=== PATIENT | male | born 1970 | race Two or more races ===

== ENCOUNTER 2017-02-13 21:47 | Emergency (ER) | payer OTHER ==
--- NOTE | 2017-02-13 21:52 | EDPHY ---
H & P HPI/ROS: HPI CHIEF COMPLAINT: Anxiety, lightheadedness, chills HISTORY OF PRESENT ILLNESS: This patient very pleasant 46-year-old male, otherwise healthy denies taking any daily medications at times he does take a sleep aid to help sleep due to anxiety. He tells me that approximately a year ago he had an anxiety attack and ended up in the emergency room. Additionally had cardiology evaluation with a negative nuclear stress test and echocardiogram and EKG. He presents emergency room this evening feeling anxious. He states that he had a normal day today. He went to work felt fine. He came home a dinner. He started feeling lightheaded. He describes this as not room spinning. He states he then felt chills. [place] anxious. Decided come the emergency room. Denies any chest pain, jaw pain, back pain, headache, neck pain, dizziness, nausea or vomiting. Denies shortness of breath. Main complaint is feeling slightly anxious and lightheadedness. No family history of premature cardiac disease. Since arriving to the emergency room he does tell me he feels better. He is lightheadedness has subsided. Additionally he denies focal weakness or numbness or tingling. 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 Family History: Noncontributory. ROS REVIEW OF SYSTEMS: A comprehensive 10 point review of systems is otherwise negative aside from elements mentioned in the history of present illness. Exam Constitutional appears slightly anxious triage nursing summary reviewed, vital signs reviewed, awake/alert. His vital signs are noted. Hypertensive. Eyes normal conjunctivae and sclera, EOMI, PERRLA. HENT normal inspection, atraumatic, moist mucus membranes, no epistaxis, neck supple/ no meningismus, no raccoon eyes. Respiratory clear to auscultation bilaterally, normal breath sounds, no respiratory distress, no wheezing. Cardiovascular rate normal, regular rhythm, no murmur, no edema, distal pulses normal. Gastrointestinal soft, non-tender, no rebound, no guarding, normal bowel sounds, no distension, no pulsatile mass. Genitourinary no CVA tenderness. Musculoskeletal no midline vertebral tenderness, full range of motion, no calf swelling, no tenderness of extremities, no meningismus, good pulses, neurovascularly intact. Skin pink, warm, & dry, no rash, skin atraumatic. Neurologic awake, alert and oriented x 3, AAOx3, moves all 4 extremities equally, motor intact, sensory intact, CN II-XII intact, normal cerebellar, normal vision, normal speech. Psychiatric anxious, normal mood/affect. Heme/Lymph/Immune no lymphadenopathy. Differential Diagnosis: Includes but is not limited to in a particular order, acute anxiety, panic attack, electrolyte disturbance, thyroid disease, doubt acute coronary syndrome, doubt CVA Medical Decision Making: Plan for patient full cardiac cath tech, obtain EKG, IV establishment with blood draw. 0.5 mg IV Ativan to see if this improves his symptoms in relaxes him. He appears anxious. Check troponin. Re-evaluation: EKG interpretation by me on record in [facility] system. Impression and time of EKG 2200, this is sinus rhythm rate of 67 no acute ischemic changes appreciated this EKG specifically no ST elevation ST depression T-wave abnormalities or prolonged intervals. Unremarkable nonischemic EKG. And very similar to previous EKG dated December 25 2015. ED x-ray chest one view: Negative for acute cardiopulmonary disease. 2246: Re-evaluation at this time patient is resting comfortably. No chest pain or shortness of breath. Blood pressure greatly improved with anxiety medicine 140s over 90s. He is feeling relax and feels much better. He denies any complaints at this time. Feels much better after 0.5 mg IV Ativan. Blood pressure improved. EKG nonischemic. Troponin negative. Chest x-ray negative. Electrolytes are appropriate. TSH is still pending. I will allow him to go home with a limited supply of Ativan. Should follow up with his primary care doctor. Only did take Ativan he feels very anxious. Return precautions have been given he understands return emergency room if develops chest pain shortness of breath severe headache numbness or tingling focal weakness or any questions or concerns. He is agreeable this plan. He is relieved his workup is negative. Feels much better after anxiety medicine. Source: Patient - Medical/Surgical History Hx Asthma: No Hx Chronic Respiratory Disease: No Hx Diabetes: No Hx Cardiac Disease: No Hx Renal Disease: No Hx Cirrhosis: No Hx Alcoholism: No Hx HIV/AIDS: No Hx Splenectomy or Spleen Trauma: No - Social History Smoking Status: Never smoked Constitutional: Initial Vital Signs Heart Rate 69 02/13/17 21:53 Respiratory Rate 21 H 02/13/17 21:53 Blood Pressure 186/99 H 02/13/17 21:53 O2 Sat (%) 98 02/13/17 21:53 O2 Delivery Mode Room Air Allergies/Adverse Reactions: No Known Allergies Allergy (Verified 02/13/17 22:19) Home Medications: Medication Instructions Recorded Melatonin 12/25/15 hydrOXYzine HCL [Hydroxyzine HCl] 50 mg PO BID PRN #15 tablet 12/25/15 LORazepam [Ativan] 1 mg PO DAILY #5 tablet 02/13/17 Medical Decision Making - Diagnostics Imaging Results: Imaging Impressions Chest X-Ray 02/13/17 22:00 Impression: The chest is negative for acute abnormality. - Data Points Laboratory Results: Laboratory Results 02/13/17 22:10 02/13/17 22:10 02/13/17 02/13/17 22:10 22:10 WBC 9.90 10^3/uL H 10^3/uL (3.80-9.50) RBC 5.19 10^6/uL 10^6/uL (4.40-6.38) Hgb 16.5 g/dL g/dL (13.7-17.5) Hct 47.0 % % (40.0-51.0) MCV 90.6 fL fL (81.5-99.8) MCH 31.8 pg pg (27.9-34.1) MCHC 35.1 g/dL g/dL (32.4-36.7) RDW 12.9 % % (11.5-15.2) Plt Count 284 10^3/uL 10^3/uL (150-400) MPV 11.0 fL fL (8.7-11.7) Neut % (Auto) 62.0 % % (39.3-74.2) Lymph % (Auto) 26.3 % % (15.0-45.0) [place] % (Auto) 6.4 % % (4.5-13.0) Eos % (Auto) 4.2 % % (0.6-7.6) Baso % (Auto) 1.0 % % (0.3-1.7) Nucleat RBC Rel Count 0.0 % % (0.0-0.2) Absolute Neuts (auto) 6.14 10^3/uL 10^3/uL (1.70-6.50) Absolute Lymphs (auto) 2.60 10^3/uL 10^3/uL (1.00-3.00) Absolute Monos (auto) 0.63 10^3/uL 10^3/uL (0.30-0.80) Absolute Eos (auto) 0.42 10^3/uL H 10^3/uL (0.03-0.40) Absolute Basos (auto) 0.10 10^3/uL 10^3/uL (0.02-0.10) Absolute Nucleated RBC 0.00 10^3/uL 10^3/uL (0-0.01) Immature Gran % 0.1 % % (0.0-1.1) Immature Gran # 0.01 10^3/uL 10^3/uL (0.00-0.10) Sodium 141 mEq/L mEq/L (134-144) Potassium 3.8 mEq/L mEq/L (3.5-5.2) Chloride 101 mEq/L mEq/L (97-110) Carbon Dioxide 25 mEq/l mEq/l (22-31) Anion Gap 15 mEq/L mEq/L (8-16) BUN 13 mg/dL mg/dL (7-23) Creatinine 0.9 mg/dL mg/dL (0.7-1.3) Estimated GFR > 60 Glucose 127 mg/dL H mg/dL (70-100) Calcium 9.8 mg/dL mg/dL (8.5-10.4) Magnesium 2.1 mg/dL mg/dL (1.6-2.3) Total Bilirubin 0.7 mg/dL mg/dL (0.1-1.4) Conjugated Bilirubin 0.3 mg/dL mg/dL (0.0-0.5) Unconjugated Bilirubin 0.4 mg/dL mg/dL (0.0-1.1) AST 20 IU/L IU/L (17-59) ALT 29 IU/L IU/L (21-72) Alkaline Phosphatase 45 IU/L IU/L (38-126) Creatine Kinase 96 IU/L IU/L (0-224) CK-MB (CK-2) Fraction 0.38 ng/mL ng/mL (0.00-4.55) Troponin I < 0.012 ng/mL ng/mL (0.000-0.034) NT-Pro-B Natriuret Pep 22 pg/mL pg/mL (0-125) Total Protein 7.9 g/dL g/dL (6.3-8.2) Albumin 4.4 g/dL g/dL (3.5-5.0) TSH Pending Medications Given: Discontinued Medications Sodium Chloride (Ns) 1,000 mls @ 0 mls/hr IV EDNOW ONE; Wide Open PRN Reason: Protocol Stop: 02/13/17 22:01 Last Admin: 02/13/17 22:10 Dose: 1,000 mls Lorazepam (Ativan Injection) 0.5 mg IVP EDNOW ONE Stop: 02/13/17 22:01 Last Admin: 02/13/17 22:11 Dose: 0.5 mg Departure - Departure Disposition: Home, Routine, Self-Care Clinical Impression: Anxiety Condition: Good Instructions: Anxiety (ED) Additional Instructions: 1. Return emergency room if he develops worsening symptoms questions or concerns. 2. Follow up with her primary care doctor. 3. I have given you very limited supply of Ativan this is an anxiety medicine. It Can make you sleepy. Do not drive while taking it. You can should only take this medication if you're feeling very anxious. Referrals: NONE *PRIMARY CARE P,. [Primary Care Provider] - As per Instructions Prescriptions: LORazepam [Ativan] 1 mg PO DAILY #5 tablet
[2017-02-13] MEDS ORDERED: LORazepam 2 MG/ML INJ IVP ONE (22:00)
[2017-02-13] MEDS ORDERED: NS 1,000 ML IV ONE (22:00)
[2017-02-13 22:02] VITALS: RESP 16
--- NOTE | 2017-02-13 22:05 | CPEKG ---
Heart Rate: 67 RR Interval: 896 P-R Interval: 148 QRSD Interval: 82 QT Interval: 376 QTC Interval: 397 P Mansfield: 64 QRS [place]: 74 T Wave [place]: 35 EKG Severity - NORMAL ECG - EKG Impression: SINUS RHYTHM Electronically Signed By: Sohail Danielle 19-Feb-2017 07:40:03
[2017-02-13 22:16] LABS: % IMMATURE GRANULYOCYTES 0.1 % (0.0-1.1); ABSOLUTE IMMATURE GRANULOCYTES 0.01 10^3/uL (0.00-0.10); ADD DIFF? NO; ADD MORPH? NO; ADD SCAN? NO; ATYPICAL LYMPHOCYTE FLAG 0 (0-99); FRAGMENT RBC FLAG 0 (0-99); HEMOGLOBIN 16.5 g/dL (13.7-17.5); LEFT SHIFT FLG 0 (0-99); LIPEMIA HEMOLYSIS FLAG 90 (0-99); MEAN CELL HEMOGLOBIN 31.8 pg (27.9-34.1); MEAN CELL HEMOGLOBIN CONCENTR. 35.1 g/dL (32.4-36.7); MEAN CELL VOLUME 90.6 fL (81.5-99.8); PLATELET CLUMPS FLAG 0 (0-99); PLATELET COUNT 284 10^3/uL (150-400); RED BLOOD CELL COUNT 5.19 10^6/uL (4.40-6.38); RED CELL DISTRIBUTION WIDTH 12.9 % (11.5-15.2)
[2017-02-13 22:29] LABS: ALANINE AMINOTRANSFERASE 29 IU/L (21-72); ALBUMIN 4.4 g/dL (3.5-5.0); ALKALINE PHOSPHATASE 45 IU/L (38-126); ANION GAP 15 mEq/L (8-16); ASPARTATE AMINOTRANSFERASE 20 IU/L (17-59); BILIRUBIN,TOTAL 0.7 mg/dL (0.1-1.4); BILIRUBIN-CONJUGATED 0.3 mg/dL (0.0-0.5); BILIRUBIN-UNCONJUGATED 0.4 mg/dL (0.0-1.1); CALCIUM 9.8 mg/dL (8.5-10.4); CARBON DIOXIDE 25 mEq/l (22-31); CHLORIDE 101 mEq/L (97-110); CREATININE 0.9 mg/dL (0.7-1.3); GLOMERULAR FILTRATION RATE > 60; GLUCOSE 127 mg/dL (70-100); MAGNESIUM 2.1 mg/dL (1.6-2.3); POTASSIUM 3.8 mEq/L (3.5-5.2); SODIUM 141 mEq/L (134-144); TOTAL PROTEIN 7.9 g/dL (6.3-8.2)
[2017-02-13 22:44] LABS: CREATINE KINASE-MB FRACTION 0.38 ng/mL (0.00-4.55); TROPONIN I < 0.012 ng/mL (0.000-0.034)
[2017-02-13 22:48] VITALS: BP 142/94; PULSE 75; TEMP 97.9; O2SAT 96
== END 2017-02-13 22:58 | disposition home or self-care (01) ==
LOC: CED 21:47
DX: F41.9 Anxiety disorder, unspecified (principal); E86.9 Volume depletion, unspecified
CPT/HCPCS: 71010-PO; 80048-PO; 80076-PO; 82550-PO; 82553-PO; 83735-PO; 83880-PO; 84443-PO; 84484-PO; 85025-PO; 96374; J2060

== ENCOUNTER 2017-07-07 15:05 | Emergency (ER) | payer BC, OTHER ==
[2017-07-07 15:21] VITALS: BP 161/92; PULSE 91; RESP 16; TEMP 97.5; O2SAT 99
--- NOTE | 2017-07-07 15:38 | EDPHY ---
H & P Stated Complaint: dizzy twice today and high hr at those times Time Seen by Provider: 07/07/17 15:17 HPI/ROS: CHIEF COMPLAINT: Vertigo HISTORY OF PRESENT ILLNESS: Episodic vertigo since 5 this morning This is a 46-year-old male who went to bed feeling well last night. However at 5 this morning he recalls turning over in bed and feeling a short term sense of that the room was spinning without any nausea. Symptoms abated in the matter of seconds. When he got up it for the day at 7:00 a.m. and got out of bed it recurred. Likewise very short duration. No nausea. However, he cannot response difficulty recall whether returned right or left. Again later in the day it occurred reoccurred and thus he came in. While waiting for me in the room as he looked over his left shoulder to the monitor and then brought his head back he had again the similar symptoms. At all times there has been no associated nausea as well as a very transient phenomenon lasting seconds Nausea: no Positional: yes Headache: no Diplopia no Change in speech no Loss of function or arm or leg no Palpitations: no He has had no similar symptoms before REVIEW OF SYSTEMS: Constitutional: No fever, no chills. Eyes: No discharge ENT: No sore throat. Cardiovascular: No chest pain, no palpitations. Musculoskeletal: No back pain. Skin: No rashes. Neurological: No headache. 10 point ROS otherwise negative Source: Patient Exam Limitations: No limitations - Personal History Current Tetanus/Diphtheria Vaccine: No Current Tetanus Diphtheria and Acellular Pertussis (TDAP): No - Medical/Surgical History Hx Asthma: No Hx Chronic Respiratory Disease: No Hx Diabetes: No Hx Cardiac Disease: No Hx Renal Disease: No Hx Cirrhosis: No Hx Alcoholism: No Hx HIV/AIDS: No Hx Splenectomy or Spleen Trauma: No Other PMH: denies surgery. "Anxiety" - Family History Significant Family History: No pertinent family hx - Social History Smoking Status: Never smoked Alcohol Use: None Drug Use: None - Physical Exam Exam: General Appearance: Alert, no distress. Afebrile. Normal phonation. No respiratory distress. At rest there is no nystagmus but when he returns to sitting up more so than head to the left doing the Barnay-Test procedure he has nystagmus which is course motion to the right that abates in a matter seconds Eyes: Pupils equal and round no pallor or injection. No icterus ENT, Mouth: Mucous membranes moist Pharynx without erythema or exudate. TM Clear. Neck: No adenopathy. Supple. No JVD. Trachea in midline. Respiratory: There are no retractions, lungs are clear to auscultation. Chest wall: Nontender to palpation. No crepitus. Cardiovascular: Regular rate and rhythm, without murmur. Neurological: Ox3. No motor weakness. Sensation intact. Gait nl. Station negative Normal knee to deshpande Normal rapid altering movements Normal [id number] No pronator drift Cranial nerves 1 through 12 are normal. He can hear fingers rubbed bilaterally Barnay-Test: No symptoms to the right. Mild symptoms to the left. Prominent symptoms when he sits up. At all points it last only seconds Skin: Warm and dry, no rashes. Musculoskeletal: No joint swelling. Extremities: No edema. Homans sign negative. No cords. Psychiatric: Normal affect. Patient is oriented X 3. There is no agitation Constitutional: Initial Vital Signs Temperature (C) 36.4 C 07/07/17 15:15 Heart Rate 91 07/07/17 15:15 Respiratory Rate 16 07/07/17 15:15 Blood Pressure 161/92 H 07/07/17 15:15 O2 Sat (%) 99 07/07/17 15:15 O2 Delivery Mode Room Air Allergies/Adverse Reactions: No Known Allergies Allergy (Verified 07/07/17 15:14) Home Medications: Medication Instructions Recorded Temazepam 07/07/17 Medical Decision Making ED Course/Re-evaluation: His symptoms are positional and very short duration. He does not need meclizine at this time but may consider it if he has to be particularly active. I have cautioned him regarding driving. I suspect symptoms will stay with him for several months but certainly not accelerate. He has have a follow-up with his family physician in 1-2 weeks to be certain there is no untoward course involved. Differential Diagnosis: Diagnostic considerations include, but are not limited to, the following: Labyrinthitis, benign positional vertigo, TIA, cerumen impaction, middle ear infection Departure - Departure Disposition: Home, Routine, Self-Care Clinical Impression: Vertigo Benign positional vertigo Qualifiers: Laterality: unspecified laterality Qualified Code(s): H81.10 - Benign paroxysmal vertigo, unspecified ear Condition: Good Instructions: Benign Paroxysmal Positional Vertigo (ED) Additional Instructions: You may take [id number] BONNINE, which is meclizine, for the vertigo so that does not bother is much See your family doctor in 1-2 weeks for recheck Referrals: NONE *PRIMARY CARE P,. [Unknown] - As per Instructions
--- NOTE | 2017-07-07 18:35 | CPEKG ---
Heart Rate: 85 RR Interval: 706 P-R Interval: 156 QRSD Interval: 80 QT Interval: 340 QTC Interval: 405 P Constantia: 94 QRS Constantia: 82 T Wave Constantia: -21 EKG Severity - ABNORMAL ECG - EKG Impression: SINUS RHYTHM EKG Impression: YOLANDE, CONSIDER BIATRIAL ABNORMALITIES EKG Impression: BORDERLINE T ABNORMALITIES, INFERIOR LEADS EKG Impression: Inchanged from 07/04/2017 Electronically Signed By: Charlie Guzman 07-Jul-2017 22:14:12
== END 2017-07-07 16:10 | disposition home or self-care (01) ==
LOC: CED 15:05
DX: H81.10 Benign paroxysmal vertigo, unspecified ear (principal)